=== PATIENT | male | born 1940 | race Caucasian/White ===

== ENCOUNTER → 2016-11-12 | Outpatient (CLI) | payer MEDICAID, OTHER ==
[~2016-11-12] MED LIST: ASCO500 PO; CEPH500 PO; CITA10TA68 PO; CITA20TA9 PO; DOXY100C PO; ESCI20TA PO; HYD25 PO; IBUP-1681 PO; LACHLOT TP; LEVO500 PO; LIDE515C TP; LISI-661 PO; MELA3 PO; MULT-1203; PENT400 PO; VICOT PO
[2016-11-12 10:20] VITALS: BP 140/59
== END | disposition home or self-care (01) ==
LOC: HBOWC 09:31
PROVIDERS: ATTEND Emergency Medicine
DX: L97.421 Non-pressure chronic ulcer of left heel and midfoot limited to breakdown of skin (principal); A30.9 Leprosy, unspecified; L84 Corns and callosities; F41.9 Anxiety disorder, unspecified; G62.9 Polyneuropathy, unspecified; L60.3 Nail dystrophy; F17.210 Nicotine dependence, cigarettes, uncomplicated
CPT/HCPCS: 97597

== ENCOUNTER → 2016-12-03 | Outpatient (CLI) | payer OTHER ==
[2016-12-03 10:09] VITALS: BP 137/72
== END | disposition home or self-care (01) ==
LOC: HBOWC 09:53
PROVIDERS: ATTEND Emergency Medicine
DX: L97.421 Non-pressure chronic ulcer of left heel and midfoot limited to breakdown of skin (principal); L97.511 Non-pressure chronic ulcer of other part of right foot limited to breakdown of skin; F41.9 Anxiety disorder, unspecified; L60.3 Nail dystrophy; L84 Corns and callosities; M79.672 Pain in left foot; F17.210 Nicotine dependence, cigarettes, uncomplicated
CPT/HCPCS: 11055; 97597

== ENCOUNTER → 2017-01-04 | Outpatient (CLI) | payer OTHER ==
[2017-01-04 12:59] VITALS: BP 97/57
== END | disposition home or self-care (01) ==
LOC: HBOWC 10:44
PROVIDERS: ATTEND Emergency Medicine Undersea and Hyperbaric Medicine
DX: L97.421 Non-pressure chronic ulcer of left heel and midfoot limited to breakdown of skin (principal); L97.511 Non-pressure chronic ulcer of other part of right foot limited to breakdown of skin; L84 Corns and callosities; F41.9 Anxiety disorder, unspecified; G62.9 Polyneuropathy, unspecified; G89.29 Other chronic pain; A30.9 Leprosy, unspecified; I48.91 Unspecified atrial fibrillation; L60.3 Nail dystrophy; M79.674 Pain in right toe(s); F17.210 Nicotine dependence, cigarettes, uncomplicated
CPT/HCPCS: 11056; 97597

== ENCOUNTER → 2017-01-20 | Outpatient (CLI) | payer OTHER ==
[~2017-01-20] MED LIST changes: -CEPH500 PO; -CITA10TA68 PO; -CITA20TA9 PO; -DOXY100C PO; -HYD25 PO; -LIDE515C TP
[2017-01-20 10:08] VITALS: BP 151/65
== END | disposition home or self-care (01) ==
LOC: HBOWC 09:38
PROVIDERS: ATTEND Emergency Medicine
DX: L97.421 Non-pressure chronic ulcer of left heel and midfoot limited to breakdown of skin (principal); A30.9 Leprosy, unspecified; I10 Essential (primary) hypertension; L84 Corns and callosities; G62.9 Polyneuropathy, unspecified; F41.9 Anxiety disorder, unspecified; F17.210 Nicotine dependence, cigarettes, uncomplicated; I48.91 Unspecified atrial fibrillation; L60.3 Nail dystrophy
CPT/HCPCS: 97597

== ENCOUNTER → 2017-02-17 | Outpatient (CLI) | payer OTHER ==
[~2017-02-17] MED LIST changes: +DOXY100C PO
[2017-02-17 12:28] VITALS: BP 133/61
== END | disposition home or self-care (01) ==
LOC: HBOWC 10:34
PROVIDERS: ATTEND Emergency Medicine
DX: L97.421 Non-pressure chronic ulcer of left heel and midfoot limited to breakdown of skin (principal); L97.321 Non-pressure chronic ulcer of left ankle limited to breakdown of skin; G62.9 Polyneuropathy, unspecified; L84 Corns and callosities; F41.8 Other specified anxiety disorders; M20.40 Other hammer toe(s) (acquired), unspecified foot; F17.210 Nicotine dependence, cigarettes, uncomplicated; L57.0 Actinic keratosis; M79.675 Pain in left toe(s); I10 Essential (primary) hypertension; I48.91 Unspecified atrial fibrillation
CPT/HCPCS: 11056; 97597

== ENCOUNTER → 2017-03-03 | Outpatient (CLI) | payer OTHER ==
[~2017-03-03] MED LIST changes: -LEVO500 PO
[2017-03-03 11:39] VITALS: BP 129/55
== END | disposition home or self-care (01) ==
LOC: HBOWC 10:50
PROVIDERS: ATTEND Emergency Medicine
DX: L97.421 Non-pressure chronic ulcer of left heel and midfoot limited to breakdown of skin (principal); L97.521 Non-pressure chronic ulcer of other part of left foot limited to breakdown of skin; F41.9 Anxiety disorder, unspecified; G62.9 Polyneuropathy, unspecified; L84 Corns and callosities; G58.8 Other specified mononeuropathies; L57.0 Actinic keratosis; I10 Essential (primary) hypertension; F17.210 Nicotine dependence, cigarettes, uncomplicated; M20.40 Other hammer toe(s) (acquired), unspecified foot; I48.91 Unspecified atrial fibrillation; L60.3 Nail dystrophy; M79.672 Pain in left foot
CPT/HCPCS: 11056; 97597

== ENCOUNTER → 2017-03-17 | Outpatient (CLI) | payer OTHER ==
[~2017-03-17] MED LIST changes: +TRIAMCINOLONE 0.1% 15 GM OINTMENT TP ONE
[2017-03-17 12:16] VITALS: BP 121/68
== END | disposition home or self-care (01) ==
LOC: HBOWC 11:00
PROVIDERS: ATTEND Emergency Medicine
DX: L97.421 Non-pressure chronic ulcer of left heel and midfoot limited to breakdown of skin (principal); I87.2 Venous insufficiency (chronic) (peripheral); F41.9 Anxiety disorder, unspecified; I10 Essential (primary) hypertension; L60.3 Nail dystrophy; F17.210 Nicotine dependence, cigarettes, uncomplicated
CPT/HCPCS: 97597

== ENCOUNTER → 2017-03-31 | Outpatient (CLI) | payer OTHER, MEDICAID ==
[~2017-03-31] MED LIST changes: -ASCO500 PO; -DOXY100C PO; -IBUP-1681 PO; -LISI-661 PO; -MELA3 PO; -MULT-1203; -PENT400 PO; -TRIAMCINOLONE 0.1% 15 GM OINTMENT TP ONE; -VICOT PO
[2017-03-31 11:39] VITALS: BP 128/58
== END | disposition home or self-care (01) ==
LOC: HBOWC 10:45
PROVIDERS: ATTEND Emergency Medicine
DX: I87.2 Venous insufficiency (chronic) (peripheral) (principal); L97.421 Non-pressure chronic ulcer of left heel and midfoot limited to breakdown of skin; F41.9 Anxiety disorder, unspecified; L60.3 Nail dystrophy; L84 Corns and callosities; G62.9 Polyneuropathy, unspecified; I48.91 Unspecified atrial fibrillation; I10 Essential (primary) hypertension; F17.210 Nicotine dependence, cigarettes, uncomplicated
CPT/HCPCS: 97597

== ENCOUNTER → 2017-04-14 | Outpatient (CLI) | payer OTHER, MEDICAID ==
[2017-04-14 10:38] VITALS: BP 144/56
== END | disposition home or self-care (01) ==
LOC: HBOWC 09:43
PROVIDERS: ATTEND Emergency Medicine Undersea and Hyperbaric Medicine
DX: I87.2 Venous insufficiency (chronic) (peripheral) (principal); L97.421 Non-pressure chronic ulcer of left heel and midfoot limited to breakdown of skin; A30.9 Leprosy, unspecified; L84 Corns and callosities; F41.8 Other specified anxiety disorders; M79.672 Pain in left foot; I10 Essential (primary) hypertension; L60.3 Nail dystrophy; F17.210 Nicotine dependence, cigarettes, uncomplicated; G62.9 Polyneuropathy, unspecified; I48.91 Unspecified atrial fibrillation; L57.0 Actinic keratosis; M20.40 Other hammer toe(s) (acquired), unspecified foot; G58.8 Other specified mononeuropathies
CPT/HCPCS: 11055; 97597

== ENCOUNTER → 2017-04-28 | Outpatient (CLI) | payer OTHER, MEDICAID ==
[2017-04-28 12:28] VITALS: BP 118/65
== END | disposition home or self-care (01) ==
LOC: HBOWC 09:40
PROVIDERS: ATTEND Emergency Medicine
DX: E11.621 Type 2 diabetes mellitus with foot ulcer (principal); L97.421 Non-pressure chronic ulcer of left heel and midfoot limited to breakdown of skin; I87.2 Venous insufficiency (chronic) (peripheral); E11.40 Type 2 diabetes mellitus with diabetic neuropathy, unspecified; E11.42 Type 2 diabetes mellitus with diabetic polyneuropathy; L84 Corns and callosities; I10 Essential (primary) hypertension; L60.3 Nail dystrophy; M20.40 Other hammer toe(s) (acquired), unspecified foot; F41.9 Anxiety disorder, unspecified; I48.91 Unspecified atrial fibrillation; F17.210 Nicotine dependence, cigarettes, uncomplicated; L57.0 Actinic keratosis
CPT/HCPCS: 97597

== ENCOUNTER → 2017-05-12 | Outpatient (CLI) | payer OTHER, MEDICAID ==
[2017-05-12 09:46] VITALS: BP 133/69
== END | disposition home or self-care (01) ==
LOC: HBOWC 08:59
PROVIDERS: ATTEND Emergency Medicine
DX: E11.621 Type 2 diabetes mellitus with foot ulcer (principal); L97.421 Non-pressure chronic ulcer of left heel and midfoot limited to breakdown of skin; I87.2 Venous insufficiency (chronic) (peripheral); L57.0 Actinic keratosis; L84 Corns and callosities; I10 Essential (primary) hypertension; L60.3 Nail dystrophy; F17.210 Nicotine dependence, cigarettes, uncomplicated; M20.40 Other hammer toe(s) (acquired), unspecified foot; E11.40 Type 2 diabetes mellitus with diabetic neuropathy, unspecified; E11.42 Type 2 diabetes mellitus with diabetic polyneuropathy; I48.91 Unspecified atrial fibrillation; F41.8 Other specified anxiety disorders

== ENCOUNTER → 2017-05-26 | Outpatient (CLI) | payer OTHER, MEDICAID ==
[2017-05-26 09:33] VITALS: BP 132/70
== END | disposition home or self-care (01) ==
LOC: HBOWC 08:47
PROVIDERS: ATTEND Emergency Medicine
DX: E11.621 Type 2 diabetes mellitus with foot ulcer (principal); L97.421 Non-pressure chronic ulcer of left heel and midfoot limited to breakdown of skin; E11.42 Type 2 diabetes mellitus with diabetic polyneuropathy; I48.91 Unspecified atrial fibrillation; L84 Corns and callosities; I10 Essential (primary) hypertension; L60.3 Nail dystrophy; M79.672 Pain in left foot; F41.8 Other specified anxiety disorders; F17.210 Nicotine dependence, cigarettes, uncomplicated

== ENCOUNTER → 2017-06-09 | Outpatient (CLI) | payer OTHER, MEDICAID ==
[2017-06-09 09:10] VITALS: BP 133/63
== END | disposition home or self-care (01) ==
LOC: HBOWC 08:46
PROVIDERS: ATTEND Emergency Medicine
DX: E11.621 Type 2 diabetes mellitus with foot ulcer (principal); L97.421 Non-pressure chronic ulcer of left heel and midfoot limited to breakdown of skin; E11.42 Type 2 diabetes mellitus with diabetic polyneuropathy; L84 Corns and callosities; I10 Essential (primary) hypertension; L60.3 Nail dystrophy; I48.91 Unspecified atrial fibrillation; I87.2 Venous insufficiency (chronic) (peripheral); F41.8 Other specified anxiety disorders
CPT/HCPCS: 97597

== ENCOUNTER → 2017-06-23 | Outpatient (CLI) | payer OTHER, MEDICAID ==
[2017-06-23 09:28] VITALS: BP 141/68
== END | disposition home or self-care (01) ==
LOC: HBOWC 08:47
PROVIDERS: ATTEND Emergency Medicine
DX: I87.2 Venous insufficiency (chronic) (peripheral) (principal); L97.421 Non-pressure chronic ulcer of left heel and midfoot limited to breakdown of skin; E11.621 Type 2 diabetes mellitus with foot ulcer; L97.511 Non-pressure chronic ulcer of other part of right foot limited to breakdown of skin; E11.42 Type 2 diabetes mellitus with diabetic polyneuropathy; E11.40 Type 2 diabetes mellitus with diabetic neuropathy, unspecified; L84 Corns and callosities; F41.9 Anxiety disorder, unspecified; I10 Essential (primary) hypertension; L60.3 Nail dystrophy; I48.91 Unspecified atrial fibrillation; F17.210 Nicotine dependence, cigarettes, uncomplicated
CPT/HCPCS: 97597

== ENCOUNTER → 2017-07-07 | Outpatient (CLI) | payer OTHER, MEDICAID ==
[2017-07-07 10:44] VITALS: BP 139/63
== END | disposition home or self-care (01) ==
LOC: HBOWC 09:56
PROVIDERS: ATTEND Internal Medicine
DX: I87.2 Venous insufficiency (chronic) (peripheral) (principal); L97.421 Non-pressure chronic ulcer of left heel and midfoot limited to breakdown of skin; E11.621 Type 2 diabetes mellitus with foot ulcer; L97.511 Non-pressure chronic ulcer of other part of right foot limited to breakdown of skin; F41.9 Anxiety disorder, unspecified; L84 Corns and callosities; I10 Essential (primary) hypertension; L60.3 Nail dystrophy; F17.210 Nicotine dependence, cigarettes, uncomplicated; E11.40 Type 2 diabetes mellitus with diabetic neuropathy, unspecified; E11.42 Type 2 diabetes mellitus with diabetic polyneuropathy; I48.91 Unspecified atrial fibrillation
CPT/HCPCS: 97597

== ENCOUNTER → 2017-08-04 | Outpatient (CLI) | payer OTHER, MEDICAID ==
[2017-08-04 09:00] VITALS: BP 146/68
== END | disposition home or self-care (01) ==
LOC: HBOWC 08:55
PROVIDERS: ATTEND Internal Medicine
DX: E11.621 Type 2 diabetes mellitus with foot ulcer (principal); L97.421 Non-pressure chronic ulcer of left heel and midfoot limited to breakdown of skin; E11.42 Type 2 diabetes mellitus with diabetic polyneuropathy; I48.91 Unspecified atrial fibrillation; I87.2 Venous insufficiency (chronic) (peripheral); F41.9 Anxiety disorder, unspecified; L84 Corns and callosities; I10 Essential (primary) hypertension; L60.3 Nail dystrophy; F17.210 Nicotine dependence, cigarettes, uncomplicated
CPT/HCPCS: 97597

== ENCOUNTER → 2017-08-18 | Outpatient (CLI) | payer OTHER, MEDICAID ==
[2017-08-18 09:26] VITALS: BP 142/71
== END | disposition home or self-care (01) ==
LOC: HBOWC 08:50
PROVIDERS: ATTEND Internal Medicine
DX: E11.621 Type 2 diabetes mellitus with foot ulcer (principal); L97.421 Non-pressure chronic ulcer of left heel and midfoot limited to breakdown of skin; E11.42 Type 2 diabetes mellitus with diabetic polyneuropathy; I87.2 Venous insufficiency (chronic) (peripheral); L84 Corns and callosities; I10 Essential (primary) hypertension; L60.3 Nail dystrophy; I48.91 Unspecified atrial fibrillation; M79.672 Pain in left foot; M79.671 Pain in right foot; F41.9 Anxiety disorder, unspecified; F17.210 Nicotine dependence, cigarettes, uncomplicated
CPT/HCPCS: 11055

== ENCOUNTER → 2017-11-18 | Outpatient (CLI) | payer OTHER, MEDICAID | END | disposition home or self-care (01) | LOC: RADPV 12:18 | PROVIDERS: ATTEND Family Medicine | DX: M17.0 Bilateral primary osteoarthritis of knee (principal) ==